=== PATIENT | female | born 1980 | race Caucasian/White ===

== ENCOUNTER 2020-04-18 06:14 | Day surgery (SDC) | payer BC ==
[~2020-04-18] VITALS: Wt 124.0 kg
[~2020-04-18 06:14] MED LIST: ACET500; AMOX500 PO; BUTASPCAF PO; ESCI10 PO; HYDACE5 PO; IBUP200 PO; IBUP400; MECL25 PO; MULVITMINE; PARO30 PO; RXAMOX500 PO; RXPROM25S PR
--- NOTE | 2020-04-18 06:49 | NUR ---
PT ADMITTED TO [facility]. AGREES WITH PLANNED SURGERY. LUNG SOUNDS CLEAR.
--- NOTE | 2020-04-18 09:49 | NUR ---
RECIEVED PATIENT FROM PACU. RECIEVED REPORT.VSS
--- NOTE | 2020-04-18 10:22 | NUR ---
[facility]NO[facility] CALLED AND IS GOING TO PICK PATINET UP. Discharge instructions reviewed with patient. Patient verbalizes understanding. Copy given to patient to take home. Patient States Post-Procedure ride home has been arranged. Discharged via wheelchair to private car for ride home.
== END 2020-04-18 22:38 | disposition home or self-care (01) ==
LOC: ORSCMMR 06:14 → ORD 07:30 → ORSCMMR 07:30
PROVIDERS: Surgery
PROC: 0HBT0ZZ Excision of Right Breast, Open Approach (ICD-10-PCS; principal; 2020-04-18 07:30)
DX: N61.1 Abscess of the breast and nipple (principal); N60.41 Mammary duct ectasia of right breast; E66.01 Morbid (severe) obesity due to excess calories; Z68.41 Body mass index [BMI] 40.0-44.9, adult; Z79.899 Other long term (current) drug therapy
CPT/HCPCS: 88307; J0690; J1100; J1885; J2250; J2405; J2550; J2704; J2765; J3010; J7120

== ENCOUNTER 2021-05-03 00:04 | Day surgery (SDC) | payer BC ==
--- NOTE | 2021-05-03 16:56 | NUR ---
PT MONITORED Q 15 MINUTES DURING AND FOR ONE HOUR AFTER HER INFUSION. NO S/S OF RXN NOTED. IV DC'D INTACT. PT DC'D, AMBULATORY.
== END 2021-05-03 16:52 | disposition home or self-care (01) ==
LOC: ATC 00:04
DX: U07.1 COVID-19 (principal); Z88.5 Allergy status to narcotic agent; Z87.891 Personal history of nicotine dependence; R04.2 Hemoptysis; E66.01 Morbid (severe) obesity due to excess calories; Z68.41 Body mass index [BMI] 40.0-44.9, adult
CPT/HCPCS: 96365; Q0243

== ENCOUNTER → 2021-10-29 | Outpatient (CLI) | payer BC | END | disposition home or self-care (01) | LOC: LAB SHORT 14:54 | DX: D22.111 Melanocytic nevi of right upper eyelid, including canthus (principal); L90.5 Scar conditions and fibrosis of skin | CPT/HCPCS: 88305 ==

== ENCOUNTER → 2021-11-12 | Outpatient (CLI) | payer BC | END | disposition home or self-care (01) | LOC: LAB SHORT 12:07 | DX: L90.5 Scar conditions and fibrosis of skin (principal) | CPT/HCPCS: 88304; 88305 ==

== ENCOUNTER → 2022-12-03 | Outpatient (CLI) | payer BC ==
[2022-12-04 07:40] LABS: Candida species (DNA Probe) Negative (NEGATIVE); G. vaginalis (DNA Probe) Negative (NEGATIVE); T. vaginalis (DNA Probe) Negative (NEGATIVE)
[2022-12-08 18:07] LABS: HPV 16 Negative (Negative); HPV 18 Negative (Negative); HPV OTHER HR TYPES Negative (Negative)
== END | disposition home or self-care (01) ==
LOC: LAB SHORT 09:15 → LAB 09:15
PROVIDERS: Internal Medicine
DX: Z12.4 Encounter for screening for malignant neoplasm of cervix (principal); N76.0 Acute vaginitis; Z20.2 Contact with and (suspected) exposure to infections with a predominantly sexual mode of transmission
CPT/HCPCS: 87480; 87510; 87624; 87660; G0145

== ENCOUNTER → 2022-12-09 | Outpatient (CLI) | payer BC | END | disposition home or self-care (01) | LOC: LAB SHORT 13:30 → LAB 13:30 | DX: T83.6 Infection and inflammatory reaction due to prosthetic device, implant and graft in genital tract (principal); R78.81 Bacteremia | CPT/HCPCS: 87040; 87070; 87075; 87106; 87205 ==

== ENCOUNTER 2023-02-05 06:07 | Day surgery (SDC) | payer BC ==
[~2023-02-05] VITALS: Ht 170.2 cm; Wt 91.7 kg
[2023-02-05] MEDS ORDERED: Furosemide20 MG (06:26)
[2023-02-05] MEDS ORDERED: POTA20PAC (06:27)
[2023-02-05 08:16] VITALS: BP 92/58
== END 2023-02-05 08:05 | disposition home or self-care (01) ==
LOC: ORSCSDS 06:07
PROVIDERS: Internal Medicine Gastroenterology
PROC: 0DJD8ZZ Inspection of Lower Intestinal Tract, Via Natural or Artificial Opening Endoscopic (ICD-10-PCS; principal; 2023-02-05 07:00)
PROC: 0DB98ZX Excision of Duodenum, Via Natural or Artificial Opening Endoscopic, Diagnostic (ICD-10-PCS; principal; 2023-02-05 07:00)
PROC: 0DB78ZX Excision of Stomach, Pylorus, Via Natural or Artificial Opening Endoscopic, Diagnostic (ICD-10-PCS; principal; 2023-02-05 07:00)
DX: Z12.11 Encounter for screening for malignant neoplasm of colon (principal); Z80.0 Family history of malignant neoplasm of digestive organs; R59.1 Generalized enlarged lymph nodes; Z79.899 Other long term (current) drug therapy; Z87.891 Personal history of nicotine dependence
CPT/HCPCS: 43239; G0105; 88305; 88342; J2704; J7120

== ENCOUNTER 2023-04-05 07:21 | Day surgery (SDC) | payer BC ==
[~2023-04-05] VITALS: Ht 170.2 cm; Wt 99.2 kg
[~2023-04-05 07:21] MED LIST changes: +Furosemide20 MG; +POTA20PAC
--- NOTE | 2023-04-05 09:08 | NUR ---
04/05/23 0908 Farooq Roblero BRUISE ON LATERAL SIDE OF RIGHT ANKLE.
[2023-04-05 11:05] VITALS: BP 102/65
--- NOTE | 2023-04-05 11:34 | NUR ---
04/05/23 1134 Deacon Ball PT PAIN 4/10 IN SDU, HOWEVER, ABOUT 20 MINUTES BEFORE DISCHARGE PT STATED PAIN INCREASED TO 6/10, PT DECLINED IV PAIN MEDICATION, RN ADMINISTERED NORCO 5/325 ORAL MEDICATION TO MANAGE PAIN PER ORDERS. PT STATED SLIGHT NAUSEA PRESENT, NO EMESIS, MANAGED WITH ALCOHOL SWAB. PT HAD S/S OF SHIVERING, MANAGED WITH [employer] AND [facility] UNIT FOR ABOUT [address]AR PACK IN PLACE AND HELPED WITH PAIN MANAGEMENT PER PT. PT ABLE TO EAT AND DRINK WITH NO ISSUES. DISCHARGE INSTRUCTIONS GIVEN, QUESTIONS ENCOURGED, PT DENIED QUESTIONS ABOUT DC INSTRUCTIONS. PT STATED PAIN WAS TOLERABLE AND EXPRESSED READINESS TO GO HOME. VSS.
== END 2023-04-05 11:25 | disposition home or self-care (01) ==
LOC: ORSCSDS 07:21
PROVIDERS: Orthopaedic Surgery
PROC: 0SBC4ZZ Excision of Right Knee Joint, Percutaneous Endoscopic Approach (ICD-10-PCS; principal; 2023-04-05 08:45)
DX: S83.241A Other tear of medial meniscus, current injury, right knee, initial encounter (principal); M23.41 Loose body in knee, right knee; Z79.899 Other long term (current) drug therapy; E66.9 Obesity, unspecified; Z68.34 Body mass index [BMI] 34.0-34.9, adult
CPT/HCPCS: A9270; J0171; J0690; J1100; J2250; J2405; J2795; J3010; J3370; J7120

== ENCOUNTER → 2023-12-28 | Outpatient (CLI) | payer BC | LOC: LAB SHORT 08:24 → LAB 08:24 | DX: D48.5 Neoplasm of uncertain behavior of skin (principal) | CPT/HCPCS: 88305 ==

== ENCOUNTER → 2024-05-05 | Outpatient (CLI) | payer BC ==
[2024-05-11 16:48] LABS: HPV GENOTYPE 16 BY PCR Negative; HPV GENOTYPE 18 BY PCR Negative; HPV SOURCE Cervical; HPV, OTHER HIGH RISK BY PCR Negative
== END ==
LOC: LAB 11:25 → LAB SHORT 11:25
PROVIDERS: Internal Medicine
DX: Z12.4 Encounter for screening for malignant neoplasm of cervix (principal)
CPT/HCPCS: 87624; 88142